=== PATIENT | female | born 1985 ===

== ENCOUNTER 2019-01-28 06:45 | Emergency (ER) | payer OTHER, SELFPAY ==
[2019-01-28 07:26] VITALS: BP 107/70; PULSE 74; RESP 15; TEMP 37.3; O2SAT 99; BMI 22.1
--- NOTE | 2019-01-28 07:34 | ED_ITS ---
HPI - URI/Sore Throat General Chief Complaint: Upper Respiratory Symptoms Stated Complaint: Thinks she has strep throat Time Seen by Provider: 01/28/19 07:22 Source: patient Mode of arrival: ambulatory Limitations: no limitations History of Present Illness HPI Narrative: 33-year-old female here with approximately 24 hr of sore throat, left ear pain, lymph node on the left side of her neck, coughing, fevers. She s tates she has been taking Tylenol. No rashes. No problems breathing. Related Data Home Medications Medication Instructions Recorded Confirmed diphenhydramine HCl [Benadryl #0 11/12/17 Allergy] hydrocortisone #0 11/12/17 Previous Rx's Medication Instructions Recorded norgestimate-ethinyl estradiol 1 tab PO QDAY #3 pac 06/23/17 [Ortho-Cyclen (28)] prednisone 10 mg PO SEE INSTRUCTIONS 12 Days 11/12/17 #0 tab Allergies Allergy/AdvReac Type Severity Reaction Status Date / Time Penicillins Allergy Severe ANAPHYLAXIS Unverified 02/25/18 12:31 Review of Systems Constitutional Reports fever(s) and Denies headache(s) Eyes Denies blurry vision and Denies diplopia ENT Ears, Nose, Mouth, and Throat: Denies vertigo, Denies dizziness, Denies headach e(s), Reports nasal discharge, Reports post nasal drip, Denies tinnitus, Reports sinus pain, Reports sinus pressure and Reports sore throat Comments: Left ear pain Cardiovascular Denies chest pain Respiratory Reports cough Gastrointestinal Gastrointestinal: Denies abdominal pain, Denies nausea and Denies vomiting Musculoskeletal Denies myalgias and Denies arthralgias Integumentary/Breasts Denies lesions and Denies rash Neurologic Denies vertigo, Denies dizziness and Denies headache(s) Hematologic/Lymphatic Denies easy bleeding and Denies easy bruising PFSH Medical History Healthy adult (Acute) Surgical History Status post hernia repair Status post tubal ligation Family History Grandfather Stroke Grandmother Age: 79 Diabetes mellitus Mother Age: 52 Gallbladder disease Social History Smoking Status: Current every day smoker Family History Grandfather Stroke Grandmother Age: 79 Diabetes mellitus Mother Age: 52 Gallbladder disease Social History Smoking Status: Current every day smoker Exam Initial Vital Signs Initial Vital Signs: Vital Signs Temperature 99.1 F 01/28/19 07:26 Pulse Rate 74 01/28/19 07:26 Respiratory Rate 15 01/28/19 07:26 Blood Pressure 107/70 01/28/19 07:26 Pulse Oximetry 99 01/28/19 07:26 Const General: cooperative, healthy appearing, comfortable, well developed, well groomed and No acute distress Orientation: alert, awake and oriented x3 HENMT Head: normal to inspection, normocephalic and atraumatic Ears: other (Bilateral tympanic membranes bulging over not erythematous) Face and sinus: normal facial exam Mouth: oral mucosae normal Neck Lymphatic: lymphadenopathy Resp Effort & Inspection: normal respiratory effort Auscultation: clear to auscultation bilaterally Cardio Rate: regular rate Rhythm: regular rhythm Skin Lesions: no lesions Rashes: no rashes Neuro General: alert, awake and oriented x3 Cognition: normal cognition Speech: speech normal Extrem General: normal to inspection and capillary refill normal Psych Appearance: grossly normal and well kempt Course Vital Signs - 8 hr 01/28/19 07:26 Temperature 99.1 F Pulse Rate 74 Respiratory Rate 15 Blood Pressure 107/70 Pulse Oximetry 99 MDM - URI/Sore Throat Lab Data Attestation: I reviewed the patient's lab results. Lab Results 01/28/19 Range/Units 07:42 Group A Strep (PCR) Cancelled Point of Care Testing Rapid Strep A Negative [facility] Narrative Medical decision making narrative: Nontoxic-appearing, no respiratory distress, strep was negative. Does have other symptoms consistent with an upper respiratory infection. Does have lymphadenopathy. Will hold on any antibiotics. We did discuss symptom treatment. We discussed return precau tions. She expressed understanding and agreement with plan. Discharge Plan Departure Patient Disposition: Home Clinical Impression: Upper respiratory infection Qualifiers: URI type: unspecified URI Qualified Code(s): J06.9 - Acute upper respiratory infection, unspecified Instructions: DI for Viral Upper Respiratory Infection -- Adult Activity Restrictions/Additional Instructions: I do recommend that you take Tylenol and/or Motrin for any fevers and body aches. You can also take a decongestant such as Benadryl and/or Claritin for sinus congestion. Contact her primary doctor for follow-up. Return to the emergency department for any new or worsening symptoms Prescriptions: No Action norgestimate-ethinyl estradiol [Ortho-Cyclen (28)] 1 EACH tablet 1 tab PO QDAY Qty: 3 RF: 4 hydrocortisone 0.5 % cream Qty: 0 RF: 0 diphenhydramine HCl [Benadryl Allergy] 25 MG tablet Qty: 0 RF: 0 prednisone 10 MG tablet 10 mg PO SEE INSTRUCTIONS 12 Days Qty: 0 RF: 0 Referrals: Milli Vogt ARNP [Primary Care Provider] - Stand Alone Forms: Work Release Note
[2019-01-28 08:55] VITALS: PULSE 64; RESP 15; O2SAT 100
== END 2019-01-28 08:57 | disposition home or self-care (01) ==
PROVIDERS: Emergency Provider Emergency Medicine; Family Provider Internal Medicine; PCP Internal Medicine
DX: J06.9 Acute upper respiratory infection, unspecified (principal)
CPT/HCPCS: 87880; 99282